=== PATIENT | male | born 1945 | race Caucasian/White ===

== ENCOUNTER 2016-07-20 15:34 | Day surgery (SDC) | payer OTHER, MEDICARE ==
[~2016-07-20] VITALS: Ht 172.7 cm; Wt 77.0 kg
[2016-07-20] MEDS ORDERED: ATORVASTATIN CA10 MG PO (16:37)
[2016-07-20 16:38] LABS: HEMATOCRIT 43.2 % (38.0-50.0); MCH 30.8 PG (29.0-34.0); MCHC 34.3 G/DL (30.0-36.0); MCV 89.8 FL (86-99); MEAN PLAT.VOLUME 10.1 uM^3 (9.0-12.4); PLATELET COUNT 170 K/uL (156-360); RBC DIS.WIDTH-CV 13.3 % (11.8-14.6); RBC DIS.WIDTH-SD 44.1 % (39-53); RED BLOOD COUNT 4.81 M/uL (4.00-5.50); WHITE BLOOD COUNT 13.1 K/uL (4.1-10.2)
[2016-07-20] MEDS ORDERED: VITAMIN E400 UNIT PO (16:38)
[2016-07-20] MEDS ORDERED: GARLIC600 MG PO (16:39)
[2016-07-20] MEDS ORDERED: CO Q-10100 MG PO (16:39)
[2016-07-20] MEDS ORDERED: B-COMPLEX-VITA1 EACH PO (16:40)
[2016-07-20] MEDS ORDERED: [UNRECOGNIZED DRUG - OTHER] PO (16:42)
[2016-07-20] MEDS ORDERED: [UNRECOGNIZED DRUG - CODE] PO (16:43)
[2016-07-20 22:24] VITALS: BP 121/73
[2016-07-21 03:41] VITALS: BP 103/59
[2016-07-21 07:30] VITALS: BP 117/66
[2016-07-21 07:35] LABS: ANION GAP 10 MEQ/L (2-14); CHLORIDE 102 MEQ/L (99-109); GFR ESTIMATE (CALCULATED) > 59 mL/min/; GLUCOSE 134 mg/dL (70-99); SAMPLE HEMOLYSIS CHECK 0; SAMPLE ICTERIC CHECK 0; SAMPLE LIPEMIA CHECK 0; SODIUM 136 MEQ/L (136-147); UREA NITROGEN (BUN) 10 mg/dL (9-23)
[2016-07-21 07:46] LABS: HEMATOCRIT 36.5 % (38.0-50.0); MCH 30.6 PG (29.0-34.0); MCHC 34.2 G/DL (30.0-36.0); MCV 89.5 FL (86-99); MEAN PLAT.VOLUME 10.3 uM^3 (9.0-12.4); PLATELET COUNT 153 K/uL (156-360); RBC DIS.WIDTH-CV 13.3 % (11.8-14.6); RBC DIS.WIDTH-SD 44.3 % (39-53); RED BLOOD COUNT 4.08 M/uL (4.00-5.50)
[2016-07-21 11:15] VITALS: BP 138/67
[2016-07-21 15:20] VITALS: BP 122/68
[2016-07-21] MEDS ORDERED: ENDOCET 5-3251 EACH PO (15:51)
[2016-07-21] MEDS ORDERED: COLACE100 MG PO (15:51)
[2016-07-21 15:52] VITALS: BP 135/65
== END 2016-07-21 17:54 | disposition home or self-care (01) ==
LOC: EME 15:34 → SDC 19:52 → EME 19:52 → 2SOUTH 21:50 → 2EAST 21:50 → 2SOUTH 21:50 → 2EAST 22:14
PROVIDERS: Emergency Medicine; Thoracic Surgery (Cardiothoracic Vascular Surgery)
PROC: 0DTJ0ZZ Resection of Appendix, Open Approach (ICD-10-PCS; principal; 2016-07-20)
DX: K35.80 Unspecified acute appendicitis (principal); K38.1 Appendicular concretions; E78.5 Hyperlipidemia, unspecified; Z82.49 Family history of ischemic heart disease and other diseases of the circulatory system
CPT/HCPCS: 71020; 80048; 85027; 88304; 93005; 99281; 99285; G0378; J0330; J1100; J1644; J1885; J2405; J2543; J2710; J2765; J3010; J7030; J7120